=== PATIENT | female | born 1955 ===

== ENCOUNTER 2019-08-07 06:10 | Day surgery (SDC) | payer OTHER ==
[~2019-08-07] VITALS: Ht 167.6 cm; Wt 88.3 kg
[~2019-08-07 06:10] MED LIST: IRBESARTAN-HCT1 EACH PO; Naproxen375 MG PO; VITAMIN D310000 UNIT PO
[2019-08-07] MEDS ORDERED: LEVSOD25 (06:38)
[2019-08-07] MEDS ORDERED: IBUP800 (06:39)
== END 2019-08-07 08:15 | disposition home or self-care (01) ==
LOC: ORSCSDS 06:10
PROVIDERS: Ophthalmology
PROC: 08RK3JZ Replacement of Left Lens with Synthetic Substitute, Percutaneous Approach (ICD-10-PCS; principal; 2019-08-07 07:30)
DX: H25.12 Age-related nuclear cataract, left eye (principal); I10 Essential (primary) hypertension; Z79.899 Other long term (current) drug therapy
CPT/HCPCS: J2250; J3010; V2632